=== PATIENT | male | born 1960 | race African-American/Black ===

== ENCOUNTER 2023-08-24 05:39 | Emergency (ER) | payer MEDICAID ==
[2023-08-24 05:50] VITALS: PULSE 89
== END 2023-08-24 06:15 | disposition left against medical advice (07) ==
LOC: ER 05:39
DX: Z01.30 Encounter for examination of blood pressure without abnormal findings (principal); Z53.21 Procedure and treatment not carried out due to patient leaving prior to being seen by health care provider
CPT/HCPCS: 99281